=== PATIENT | female | born 2000 | race Caucasian/White ===

== ENCOUNTER → 2024-09-23 | Outpatient (CLI) | payer OTHER | LOC: CSHULT 16:11 | PROVIDERS: ATTEND Advanced Practice Midwife | DX: Z34.90 Encounter for supervision of normal pregnancy, unspecified, unspecified trimester (principal) | CPT/HCPCS: 76805 ==

== ENCOUNTER 2024-12-09 10:24 | Inpatient (IN) | payer MEDICAID, OTHER ==
[2024-12-09 10:41] VITALS: BMI 30.6
[2024-12-09] MEDS ORDERED: Acetaminophen 500 MG TAB PO PRN (10:54)
[2024-12-09] MEDS ORDERED: Promethazine HCl 25 MG/ML VIAL IM PRN ×2 (10:54→15:46)
[2024-12-09] MEDS ORDERED: Misoprostol 200 MCG TAB PR PRN (10:54)
[2024-12-09] MEDS ORDERED: Diphenoxylate HCl/Atropine Tablet PO PRN (10:54)
[2024-12-09] MEDS ORDERED: Carboprost 250 MCG/ML AMP IM PRN (10:54)
[2024-12-09] MEDS ORDERED: Methylergonovine 0.2 MG/ML VIAL IM PRN ×2 (10:54→22:27)
[2024-12-09] MEDS ORDERED: Tranexamic Acid 1,000 MG/10 ML VIAL IVP PRN (10:54)
[2024-12-09] MEDS ORDERED: hydrALAZINE 20 MG/ML VIAL SLOW IVP PRN ×2 (10:54→22:27)
[2024-12-09] MEDS ORDERED: Ondansetron PF 4 MG/2 ML Vial IVP PRN ×3 (10:54→22:27)
[2024-12-09] MEDS ORDERED: Lidocaine 1% (PF) 30 ML VIAL SC PRN (10:54)
[2024-12-09] MEDS ORDERED: fentaNYL 50 mcg/mL 1 mL Vial SLOW IVP PRN (10:54)
[2024-12-09] MEDS ORDERED: Lactated Ringer's 1,000 ML IV SCH (11:00)
[2024-12-09] MEDS ORDERED: Oxytocin 30 units/NS 500 ML 500 ML IV SCH ×3 (11:00→22:27)
[2024-12-09 11:04] LABS: Hematocrit 36.7 % (34.9-44.5); Mean Corpuscular HGB CONC 32.7 g/dL (32.0-36.0); Mean Corpuscular Hemoglobin 27.3 pg (27.0-33.0); Mean Corpuscular Volume 83.6 fL (81.6-98.3); Mean Platelet Volume 10.5 fL (7.4-10.4); Platelet Count 260 10x3/uL (150-450); RBC Distribution Width 13.3 % (11.5-14.5); Red Blood Cell (RBC) Count 4.39 10x6/uL (3.90-5.03); White Blood Cell (WBC) Count 12.05 10x3/uL (3.5-10.5)
[2024-12-09 11:42] LABS: Syphilis Antibody Nonreactive (Nonreactive); Syphilis Antibody Index 0.06 S/CO (<1.00 Non-Reactive)
[2024-12-09 11:43] LABS: HBsAg Index 0.22 S/CO (0-0.99); Hep B Surf Ag - L&D Non-Reactive S/CO (NonReactive)
[2024-12-09] MEDS: Oxytocin 30 units/NS 500 ML 500 ML IV SCH (13:08)
[2024-12-09] MEDS: fentaNYL/Ropivacaine Epidural 100 ML ONE (15:18)
[2024-12-09] MEDS ORDERED: Lactated Ringer's 500 ML IV PRN (15:46)
[2024-12-09] MEDS ORDERED: diphenhydrAMINE 50 MG/ML VIAL IVP PRN (15:46)
[2024-12-09] MEDS ORDERED: ePHEDrine Sulfate 50 MG/10 ML VIAL SLOW IVP PRN (15:46)
[2024-12-09] MEDS ORDERED: Naloxone HCl 0.4 mg/ml Vial IVP PRN ×2 (15:46)
[2024-12-09] MEDS ORDERED: Moisturizing Cream (Eucerin) 113 GM JAR TOP PRN (15:46)
[2024-12-09] MEDS ORDERED: Communication Order-Pharmacy FS SCH (16:00)
[2024-12-09] MEDS ORDERED: fentaNYL 2 mcg/Ropivacaine 0.2% Epidural 100 ML CADD EPIDURAL SCH (16:00)
[2024-12-09] MEDS: Ibuprofen 800 MG TAB PO PRN (19:02)
[2024-12-09] MEDS ORDERED: Misoprostol 200 MCG TAB VAG PRN (22:27)
[2024-12-09] MEDS ORDERED: Preparation H Ointment 28 GM TUBE PR PRN (22:27)
[2024-12-09] MEDS ORDERED: Milk Of Magnesia 30 ML UDCUP PO PRN (22:27)
[2024-12-09] MEDS ORDERED: Benzocaine-Menthol 82.5 ML CAN TOP PRN (22:27)
[2024-12-09] MEDS ORDERED: Bisacodyl 10 MG SUPP PR PRN (22:27)
[2024-12-09] MEDS ORDERED: Lanolin Ointment 7 GM TUBE TOP PRN (22:27)
[2024-12-09] MEDS: Boostrix 0.5 ML (Tdap) VIAL (>/=7 yrs of age) IM ONE (23:24)
[2024-12-09] MEDS: Docusate 100 MG CAP PO SCH (23:25)
[2024-12-10] MEDS: Ibuprofen 800 MG TAB PO SCH ×2 (02:19→13:33)
[2024-12-10] MEDS: Acetaminophen 325 MG TAB PO PRN (07:36)
[2024-12-10] MEDS: Polyethylene Glycol 3350 17 GM Packet PO SCH (07:37)
[2024-12-10] MEDS: Prenatal Vitamin 1 TAB PO SCH (07:37)
[2024-12-10] MEDS: Docusate 100 MG CAP PO SCH (07:37)
[2024-12-10] MEDS: Ferrous Sulfate 325 MG TAB PO SCH (07:39)
[2024-12-10 20:21] VITALS: TEMP 98.2
[2024-12-11 08:00] VITALS: BP 114/70
== END 2024-12-11 11:30 | disposition home or self-care (01) | DRG 807 ==
LOC: CSHLD 10:24 → CSHPP 21:47
PROVIDERS: ADMIT Family Medicine; ATTEND Family Medicine
PROC: 10E0XZZ Delivery of Products of Conception, External Approach (ICD-10-PCS; principal; 2024-12-09)
PROC: 3E0334Z Introduction of Serum, Toxoid and Vaccine into Peripheral Vein, Percutaneous Approach (ICD-10-PCS; 2024-12-09)
DX: O42.02 Full-term premature rupture of membranes, onset of labor within 24 hours of rupture (principal); Z37.0 Single live birth; O76 Abnormality in fetal heart rate and rhythm complicating labor and delivery; Z3A.39 39 weeks gestation of pregnancy; O26.893 Other specified pregnancy related conditions, third trimester; Z67.41 Type O blood, Rh negative
CPT/HCPCS: 36415; 36416; 51702; 85027; 85461; 86780; 86850; 86900; 86901; 87340; 90384; 96372; J2590